=== PATIENT | male | born 1950 ===

== ENCOUNTER 2017-10-27 18:08 | Emergency (ER) | payer MEDICARE, OTHER ==
[2017-10-27 18:44] VITALS: BP 115/71; PULSE 75; RESP 18; TEMP 98.3; O2SAT 98; BMI 22.9
--- NOTE | 2017-10-27 18:53 | ED PDOC ---
Arrival/HPI - General Time Seen by Provider: 10/27/17 18:53 Historian: Patient, Spouse - History of Present Illness Narrative History of Present Illness (Text): 10/27/17 18:53 This 67 yo male presents to this ED c/o right mid back painful rash x 1 day. Past Medical History - Cardiac Hx Cardiac Disorders: Yes Hx Congestive Heart Failure: Yes - Pulmonary Hx Respiratory Disorders: No - Neurological Hx Neurological Disorder: Yes Hx Parkinson's Disease: Yes - HEENT Hx HEENT Disorder: Yes (uses eyeglasses) - Renal Hx Renal Disorder: No - Endocrine/Metabolic Hx Endocrine Disorders: No - Hematological/Oncological Hx Blood Disorders: No - Integumentary Hx Dermatological Disorder: Yes - Musculoskeletal/Rheumatological Hx Falls: Yes - Gastrointestinal Hx Gastrointestinal Disorders: Yes (CONSTIPATION) - Genitourinary/Gynecological Hx Genitourinary Disorders: Yes Hx Incontinence: Yes Hx Prostate Problems: Yes (as per patient) - Psychiatric Hx Psychophysiologic Disorder: Yes Hx Depression: Yes Hx Emotional Abuse: No Hx Physical Abuse: No Hx Substance Use: No - Surgical History Other/Comment: as per patient, he had colonoscopy(?) done in january 2016. - Anesthesia Hx Anesthesia: No Hx Anesthesia Reactions: No Hx Malignant Hyperthermia: No - Suicidal Assessment Feels Threatened In Home Enviroment: No Family/Social History Smoking Status: Never Smoked Hx Alcohol Use: No Hx Substance Use: No Allergies/Home Meds Allergies/Adverse Reactions: Allergies No Known Allergies Allergy (Verified 11/20/16 15:19) Home Medications: Home Meds Medication Instructions Recorded Confirmed Midodrine [Proamatine] 2.5 mg PO DAILY 10/27/17 10/27/17 Physical Exam Vital Signs Temp Pulse Resp BP Pulse Ox 10/27/17 18:43 98.3 F 75 18 115/71 98 Medical Decision Making ED Course and Treatment: 10/27/17 19:30 t Re-evaluation Time: 19:31 Reassessment Condition: Re-examined, Improved - Medication Orders Current Medication Orders: Discontinued Medications Valacyclovir HCl (Valtrex) 1 gm PO STAT STA PRN Reason: Protocol Stop: 10/27/17 18:55 Last Admin: 10/27/17 19:07 Dose: 1 gm Disposition/Present on Arrival - Present on Arrival Any Indicators Present on Arrival: No History of DVT/PE: No History of Uncontrolled Diabetes: No Urinary Catheter: No History Surgical Site Infection Following: None - Disposition Have Diagnosis and Disposition been Completed?: Yes Diagnosis: Herpes zoster Disposition: HOME/ ROUTINE Disposition Time: 19:31 Patient Plan: Discharge Condition: GOOD Discharge Instructions (ExitCare): Shingles (ED) Additional Instructions: Call private doctor in 1-2 days for follow up visit. Take medication as instructed with food. Return to emergency if rash worsen. Prescriptions: Ibuprofen [Motrin] 600 mg PO Q8 PRN #15 tab PRN Reason: Pain, Severe (8-10) Valacyclovir HCl [Valtrex] 1 gm PO Q8H #21 tablet Forms: [employer] (Azeri)
== END 2017-10-27 19:51 | disposition home or self-care (01) ==
LOC: ED 18:08
DX: B02.9 Zoster without complications (principal)

== ENCOUNTER 2019-03-07 11:30 | Inpatient (IN) | payer MEDICARE ==
[2019-03-07 11:40] VITALS: BMI 19.3
[2019-03-07 12:20] LABS: BASO # 0.01 K/mm3 (0.0-2.0); BASO % 0.1 % (0.0-3.0); EOS % 0.1 % (1.5-5.0); LYMPH # 0.9 (1.2-3.4); LYMPH % 10.5 % (22.0-35.0); MEAN CELL VOLUME 94.1 fl (80.0-105.0); MEAN CORPUSCULAR HEMOGLOBIN 30.6 pg (25.0-35.0); MEAN CORPUSCULAR HGB CONC 32.5 g/dl (31.0-37.0); MEAN PLATELET VOLUME 10.3 fl (7.0-11.0); MONO # 0.9 (0.1-0.6); MONO % 10.4 % (1.0-6.0); RBC 3.92 10^6/uL (3.5-6.1); RED CELL DISTRIBUTION WIDTH 13.3 % (11.5-14.5); WHITE BLOOD COUNT 8.7 10^3/uL (4.5-11.0)
[2019-03-07] MEDS ORDERED: Iohexol 300 100 ML IJ ONE (12:25)
[2019-03-07 12:31] LABS: INR 1.17; PARTIAL THROMBOPLASTIN TIME 35.1 Seconds (26.9-38.3); PROTHROMBIN TIME 13.2 SECONDS (9.4-12.5)
--- NOTE | 2019-03-07 13:02 | ED PDOC ---
Arrival/HPI - General Chief Complaint: Abdominal Pain Time Seen by Provider: 03/07/19 11:50 Historian: Family - History of Present Illness Narrative History of Present Illness (Text): 03/07/19 12:59 69 year old Kyrgyz speaking male, whose past medical history includes orthostatic hypotension, Parkinson's disease, and depression, presents to the emergency department complaining of constant lower abdominal pain that began last night. As per family, patient was constipated and had a bowel movement last night, but is now having diarrhea and noted blood in stool. Patient denies any recent travel. Patient was recently on antibiotics for bronchitis 4 weeks ago. Patient denies any fevers, chills, chest pain, shortness of breath, nausea, vomiting, diarrhea, urinary symptoms, back pain, neck pain, headache, dizziness, or any other complaint. PMD: Dr. Navas Neurologist: Dr. Sharma Sales Operations Consultant: Dr. Lam Time/Duration: Other (last night) Symptom Onset: Gradual Symptom Course: Unchanged Activities at Onset: Light Context: Home Past Medical History - Provider Review Nursing Documentation Reviewed: Yes - Infectious Disease Hx of Infectious Diseases: None - Cardiac Hx Cardiac Disorders: Yes Hx Hypotension: Yes - Pulmonary Hx Respiratory Disorders: No - Neurological Hx Neurological Disorder: Yes Hx Dementia: Yes Hx Parkinson's Disease: Yes - HEENT Hx HEENT Disorder: Yes (uses eyeglasses) - Renal Hx Renal Disorder: No - Endocrine/Metabolic Hx Endocrine Disorders: No - Hematological/Oncological Hx Blood Disorders: No - Integumentary Hx Dermatological Disorder: Yes - Musculoskeletal/Rheumatological Hx Falls: Yes - Gastrointestinal Hx Gastrointestinal Disorders: Yes (CONSTIPATION) - Genitourinary/Gynecological Hx Genitourinary Disorders: Yes Hx Incontinence: Yes Hx Prostate Problems: Yes (as per patient) - Psychiatric Hx Psychophysiologic Disorder: Yes Hx Anxiety: Yes Hx Depression: Yes Hx Emotional Abuse: No Hx Physical Abuse: No Hx Substance Use: No - Surgical History Other/Comment: as per patient, he had colonoscopy(?) done in january 2016. - Anesthesia Hx Anesthesia: Yes Hx Anesthesia Reactions: No Hx Malignant Hyperthermia: No - Suicidal Assessment Feels Threatened In Home Enviroment: No Family/Social History - Physician Review Nursing Documentation Reviewed: Yes Family/Social History: No Known Family HX Smoking Status: Never Smoked Hx Alcohol Use: No Hx Substance Use: No Allergies/Home Meds Allergies/Adverse Reactions: Allergies No Known Allergies Allergy (Verified 03/07/19 19:00) Home Medications: Home Meds Medication Instructions Recorded Confirmed Carbidopa/Levodopa [Rytary ER 3 cap PO TID 03/07/19 03/10/19 36.25 mg-145 mg Cap] Memantine HCl [Namenda Xr] 14 mg PO DAILY 03/07/19 03/10/19 Midodrine [Proamatine] 5 mg PO BID 03/07/19 03/10/19 Pimavanserin Tartrate [Nuplazid] 34 mg PO DAILY 03/07/19 03/10/19 Rivastigmine 4.6 mg/24 hr [Exelon 1 patch TOP Q24H 03/07/19 03/10/19 4.6 mg/24 hr Patch] Review of Systems - Physician Review All systems were reviewed & negative as marked: Yes - Review of Systems Constitutional: absent: Fevers, Other (chills) Respiratory: absent: SOB Cardiovascular: absent: Chest Pain Gastrointestinal: Abdominal Pain, Diarrhea, Hematochezia. absent: Nausea, Vomiting Genitourinary Male: absent: Dysuria, Frequency, Hematuria Musculoskeletal: absent: Back Pain, Neck Pain Neurological: absent: Headache, Dizziness Physical Exam Vital Signs Reviewed: Yes Vital Signs Temp Pulse Resp BP Pulse Ox 03/07/19 11:44 98.4 F 98 H 20 126/75 98 Temperature: Afebrile Blood Pressure: Normal Pulse: Regular Respiratory Rate: Normal Appearance: Positive for: Well-Appearing, Non-Toxic, Comfortable Pain Distress: None Mental Status: Positive for: other (Alert) - Systems Exam Head: Present: Atraumatic, Normocephalic Pupils: Present: PERRL Extroacular Muscles: Present: EOMI Conjunctiva: Present: Normal Mouth: Present: Moist Mucous Membranes Neck: Present: Normal Range of Motion Respiratory/Chest: Present: Decreased Breath Sounds. No: Respiratory Distress, Accessory Muscle Use Cardiovascular: Present: Normal S1, S2, Tachycardic. No: Murmurs Abdomen: Present: Tenderness (LLQ tenderness). No: Distention, Peritoneal Signs Rectal: Present: Other (Guaiac stool brown, soft. Guaiac negative. ) Back: Present: Normal Inspection Upper Extremity: Present: Normal Inspection. No: Cyanosis, Edema Lower Extremity: Present: Normal Inspection. No: Edema Neurological: Present: Other (resting tremor) Skin: Present: Warm, Dry, Normal Color. No: Rashes Psychiatric: Present: Alert Medical Decision Making ED Course and Treatment: 03/07/19 13:03 Impression: 69 year old male presents for complaints of constant left lower abdominal pain associated with diarrhea and noted hematochezia that began last night. Plan: -- CT Abd & Pelvis IV Contrast only -- EKG -- Labs -- CXR -- Urine Culture -- Morphine -- UA -- Reassess and dispo Prior Visits: Notes and results from previous visits were reviewed. Progress Notes: 03/07/19 14:03 03/07/19 14:05 EKG shows NSR at 85 BPM. As read by me. 03/07/19 14:17 Rectal exam: Guaiac stool brown, soft. Guaiac negative. [id number] EXP: 10/0303/07/19 16:[address] Navas who is aware and agrees with the plan. Accepts patient into his service [facility]action and melena. Request GI Dr. Broussard for consult. - Lab Interpretations Lab Results: PT 13.2 SECONDS (9.4-12.5) H 03/07/19 12:00 INR 1.17 03/07/19 12:00 APTT 35.1 Seconds (26.9-38.3) 03/07/19 12:00 I have reviewed the lab results: Yes - RAD Interpretation Radiology Orders: 03/07/19 12:05 CHEST PORTABLE [RAD] Stat 03/07/19 12:10 ABD & PELVIS IV CONTRAST ONLY [CT] Stat Human Resources Training Manager: Radiologist - EKG Interpretation Interpreted by ED Physician: Yes Type: 12 lead EKG - Scribe Statement The provider has reviewed the documentation as recorded by the Baldevibe Susan Madsen Provider Scribe Attestation: All medical record entries made by the Scribe were at my direction and personally dictated by me. I have reviewed the chart and agree that the record accurately reflects my personal performance of the history, physical exam, medical decision making, and the department course for this patient. I have also personally directed, reviewed, and agree with the discharge instructions and disposition. Disposition/Present on Arrival - Present on Arrival Any Indicators Present on Arrival: No History of DVT/PE: No History of Uncontrolled Diabetes: No Urinary Catheter: No History of Decub. Ulcer: No History Surgical Site Infection Following: None - Disposition Have Diagnosis and Disposition been Completed?: Yes Diagnosis: Abdominal pain, Fecal impaction Disposition: HOSPITALIZED Disposition Time: 16:00 Patient Plan: Admission Condition: STABLE
[2019-03-07] MEDS ORDERED: Morphine 2 mg/ml ISec IVP STA (13:10)
[2019-03-07 13:56] LABS: ALB/GLOB RATIO 1.2 (1.1-1.8); ALBUMIN 4.3 g/dL (3.0-4.8); ALT/SGPT 13 U/L (7-56); AMYLASE 106 U/L (35-125); AST/SGOT 37 U/L (17-59); BLOOD UREA NITROGEN 29 mg/dL (7-21); CALCIUM 9.4 mg/dL (8.4-10.5); GFR NON-AFRICAN AMERICAN > 60; LIPASE 120 U/L (23-300)
[2019-03-07 14:07] LABS: TROPONIN I < 0.01 ng/mL
--- NOTE | 2019-03-07 14:43 | CT ---
Date of service: 03/07/2019 PROCEDURE: CT Abdomen and Pelvis with contrast HISTORY: abd pain COMPARISON: Lung base and upper abdomen sections from prior chest CT with contrast 04/03/2016. TECHNIQUE: Following the intravenous administration of iodinated contrast material, a CT examination of the abdomen and pelvis was performed from the domes of the diaphragms to the symphysis pubis with reformatted datasets provided in axial, sagittal and coronal planes. Oral contrast was not administered as per referring physician request. Contrast dose: Omnipaque 300, 100 cc Radiation dose: Total exam DLP = 369.16 mGy-cm. This CT exam was performed using one or more of the following dose reduction techniques: Automated exposure control, adjustment of the mA and/or kV according to patient size, and/or use of iterative reconstruction technique. FINDINGS: LOWER THORAX: Limited bilateral basilar dependent atelectasis identified. No pleural or pericardial effusion appreciable. LIVER: Unremarkable. No gross lesion or ductal dilatation. GALLBLADDER AND BILE DUCTS: Unremarkable. PANCREAS: Unremarkable. No gross lesion or ductal dilatation. SPLEEN: Unremarkable. ADRENALS: Unremarkable. No mass. KIDNEYS AND URETERS: No obstructive uropathy bilaterally. No radiodense urolithiasis either. A sub cm lucency seen related to the cortex of the upper midpole right kidney medially, too small to characterize. There is a 2.2 cm lucency exophytic off the upper pole left kidney measuring 22 Hounsfield units potentially representing a hyperdense cyst. Follow-up ultrasonography is advised for added characterization. No definite perinephric reaction bilaterally. VASCULATURE: No aneurysmal dilatation of the abdominal aorta or iliac arterial system bilaterally. Trace aortic iliac calcified atherosclerosis identified. BOWEL: There is prominent fecal loading throughout the majority of the colon, right side greater than left with mild to moderate rectal fecal impaction evident up to 8.5 cm. No definite bowel obstruction. Stomach is collapsed and poorly evaluated. APPENDIX: No CT evidence of appendicitis. PERITONEUM: Unremarkable. No free fluid. No free air. LYMPH NODES: Unremarkable. No enlarged lymph nodes. BLADDER: Urinary bladder is largely collapsed with limited evaluation of the wall. No gross mural thickening though mild thickening is not completely excluded. REPRODUCTIVE: Unremarkable. BONES: There is prominent fecal OTHER FINDINGS: None. IMPRESSION: Prominent fecal loading is appreciate throughout the colon as well as mild to moderate rectal fecal impaction. No bowel obstruction, mesenteric edema, ascites or free intra peritoneal gas collection identified. 2.2 cm exophytic lucency off the upper pole left kidney likely reflective of hyperdense cyst. Follow-up renal ultrasound is recommended on elective basis for added characterization if not already proven benign. Limited evaluation the urinary bladder which is largely collapsed.
--- NOTE | 2019-03-07 15:48 | RAD ---
Date of service: 03/07/2019 HISTORY: abd pain COMPARISON: 02/19/2018 TECHNIQUE: 1 view obtained. FINDINGS: LUNGS: No active pulmonary disease. PLEURA: No significant pleural effusion identified, no pneumothorax apparent. CARDIOVASCULAR: No aortic atherosclerotic calcification present. Normal cardiac size. No pulmonary vascular congestion. OSSEOUS STRUCTURES: No significant abnormalities. VISUALIZED UPPER ABDOMEN: Normal. OTHER FINDINGS: None. IMPRESSION: No active disease.
[2019-03-07 16:21] LABS: URINE APPEARANCE CLEAR (CLEAR); URINE BILIRUBIN NEGATIVE (NEGATIVE); URINE BLOOD NEGATIVE (NEGATIVE); URINE COLOR LIGHT YELLOW (YELLOW); URINE GLUCOSE (UA) NEGATIVE (NEGATIVE); URINE LEUKOCYTE ESTERASE NEGATIVE Leu/uL (NEGATIVE); URINE PROTEIN NEGATIVE mg/dL (<30 mg/dL); URINE UROBILINOGEN 0.2 E.U./dL (<1 E.U./dL)
--- NOTE | 2019-03-07 18:23 | CARD ---
APPROVED REPORT Date of service: 03/07/2019 EKG Measurement Heart [id number] <Conclusion> Normal sinus rhythm Normal ECG
[2019-03-07] MEDS: LEVODOPA PO SCH (20:08)
[2019-03-07] MEDS: CARBIDOPA PO SCH (20:08)
[2019-03-07] MEDS ORDERED: Pneumococcal 23-Valent Vaccine IM ONE (22:05)
[2019-03-07 22:06] LABS: URINE BILIRUBIN NEGATIVE (NEGATIVE); URINE BLOOD NEGATIVE (NEGATIVE); URINE GLUCOSE (UA) NEGATIVE (NEGATIVE); URINE LEUKOCYTE ESTERASE NEGATIVE Leu/uL (NEGATIVE); URINE PROTEIN NEGATIVE mg/dL (<30 mg/dL); URINE UROBILINOGEN 0.2 E.U./dL (<1 E.U./dL)
[2019-03-07 22:08] LABS: URINE APPEARANCE CLEAR (CLEAR); URINE COLOR LIGHT YELLOW (YELLOW)
--- NOTE | 2019-03-08 01:16 | HP ---
DATE OF EXAM: 03/07/2019 HISTORY OF PRESENT ILLNESS: This is a 69-year-old male brought to [facility] by his with a history of diarrhea, constipation and melena. PAST MEDICAL HISTORY: The patient has a past medical history of syncope, Parkinson's, CHF. ALLERGIES: THERE ARE NO KNOWN ALLERGIES. HOME MEDICATIONS: Reported to be diltiazem one daily, 3 capsules t.i.d., Namenda XR 14 mg daily, ProAmatine 5 mg b.i.d. and Exelon patch every 24 hours. CONSULTATIONS: As per the patient's he is being followed by a physician from [facility] who has been writing their prescriptions for him. He has also been seen by the neurologist on the outside as well. SOCIAL HISTORY: He is a nonsmoker, nondrinker, non-drug user. REVIEW OF SYSTEMS: The 12 systems are reviewed, pertinent findings as stated in the physical exam. PHYSICAL EXAMINATION VITAL SIGNS: Show a temperature of 98.4. His pulse is 88, blood pressure is 126/75, his respiratory rate is 20, his oxygen sat is 98% on room air. GENERAL: The patient is alert. LUNGS: Clear. HEART: An S1, S2 rhythm. ABDOMEN: Soft. There is periumbilical tenderness. No rebound appreciated. EXTREMITIES: Show evidence of erythema. DIAGNOSTICS: His electrocardiogram is reported as showing a sinus rhythm. His abdominal pelvic CT scan shows fecal impaction and an exophytic cyst near the kidney. His chest x-ray is reported as showing no active disease. LABORATORY DATA: Shows a WBC of 8.7, RBC is 3.92, hemoglobin 12, hematocrit 36.9, and platelet count 183. His PT is 13.2 with an INR 1.14, PTT is 35.1. Chemistries show sodium 134, potassium 4.5, chloride is 99. His CO2 was 26, his anion gap is 14. His BUN is 29, his creatinine is 1.1. His liver function profile is normal. His troponin is less than 0.01. His albumin is 4.3. His amylase and lipase are normal. The urinalysis appears to be clear. IMPRESSION: A 69-year-old male with history of Parkinson's disease brought to [facility] with a history of fecal impaction, constipation, diarrhea and melena in the stool. There was a discussion over the labs and studies done by the emergency room physician as well as discussing with Celeste, the patient's . The patient will be admitted to the hospital for Gastroenterology evaluation. Nicolasa Navas MD
[2019-03-08] MEDS: PIMAVANSERIN TARTRATE PO SCH (11:34)
--- NOTE | 2019-03-08 13:12 | CP.PCM.APN ---
Subjective - Date & Time of Evaluation Date of Evaluation: 03/08/19 Time of Evaluation: 11:00 - Subjective Subjective: Pt seen and examined at bedside. Pt is confused, in no acute distress. Objective - Vital Signs/Intake and Output Vital Signs (last 24 hours): Temp Pulse Resp BP Pulse Ox 98.2 F 102 H 18 152/87 H 96 03/08/19 06:00 03/08/19 06:00 03/08/19 06:00 03/08/19 06:00 03/08/19 06:00 Intake and Output: 03/08/19 03/08/19 06:59 18:59 Output Total 800 Balance -800 - Medications Medications: Current Medications Midodrine (Proamatine) 5 mg PO BID [facility] Last Admin: 03/08/19 11:25 Dose: 5 mg Carbidopa/Levodopa [ Rytary Er 36.25 Mg- 145 Mg Cap] 3 Cap ( Home Med) 3 cap PO TID [facility] Last Admin: 03/08/19 11:35 Dose: 3 cap Memantine Hcl [ Namenda Xr] 14 Mg ( Home Med) 14 mg PO DAILY [facility] Last Admin: 03/08/19 11:35 Dose: 14 mg Pimavanserin Tartrate [Nuplazid] 1 Cap (Home Med) 1 cap PO DAILY [facility] Last Admin: 03/08/19 11:34 Dose: 1 cap Polyethylene Glycol (Miralax) 17 gm PO Q8H [facility] Stop: 03/10/19 11:31 Rivastigmine (Exelon 4.6 Mg/24 Hr Patch) 1 patch TD Q24H [facility] Last Admin: 03/07/19 20:09 Dose: Not Given - Labs Labs: 03/07/19 12:00 03/07/19 12:00 PT 13.2 SECONDS (9.4-12.5) H 03/07/19 12:00 INR 1.17 03/07/19 12:00 APTT 35.1 Seconds (26.9-38.3) 03/07/19 12:00 - Constitutional Appears: No Acute Distress - Respiratory Exam Respiratory Exam: NORMAL BREATHING PATTERN - GI/Abdominal Exam GI & Abdominal Exam: Soft - Rectal Exam Additional comments: +brown stool, no diarrhea - Exam Additional comments: +cote draining flavia urine Assessment and Plan - Assessment and Plan (Free Text) Assessment: Pt is a 69 y.o. male with pmhx of orthostatic hypotension, Parkinson's disease, and depression who presented in ED w/ c/o constant low abd pain, constipated initially and subsequently had diarrhea and noted blood in stool. He was found to have urinary retention, cote cath was inserted and Dr. Cyr was consulted. Also, neurology was consulted due to agitation. GI is on board and started him on bowel regimen. ITS Impressions Chest X-Ray 03/07/19 12:05 IMPRESSION: No active disease. Abdomen/Pelvis CT 03/07/19 12:10 IMPRESSION: Prominent fecal loading is appreciate throughout the colon as well as mild to moderate rectal fecal impaction. No bowel obstruction, mesenteric edema, ascites or free intra peritoneal gas collection identified. 2.2 cm exophytic lucency off the upper pole left kidney likely reflective of hyperdense cyst. Follow-up renal ultrasound is recommended on elective basis for added characterization if not already proven benign. Limited evaluation the urinary bladder which is largely collapsed. Plan: Ct head pending Uro, Neuro, and GI on consult Ucx pending Meds per MAR Bowel regimen Physical therapy pending Will continue to follow.
--- NOTE | 2019-03-08 13:30 | CP.PCM.CON ---
History of Present Illness - History of Present Illness History of Present Illness: S&E at bedside, chart reviewed. Request for consult is for fecal impaction. HPI: Mr. Bro is a 69 y.o male with a PMH that includes Parkinson's Disease, CHF and Syncope. He is a poor historian, and currently at time of visit no family at beside, history obtained from medical records, attending and nursing staff. Patient was brought to the ER by for c/o abdominal pain, diarrhea, melena and constipation. He had a ct scan abdomen and pelvis and found to have mild to moderate fecal impaction. Stool guiac done in the ER was negative, noted brown stool. Patient was also found to have urinary retention and cote catheter in pl evan. Patient was reported to have had an enema in the evening and had BM, no bleeding reported. Mr. Bro is a awake and alert, confused, mainly speak [place] but follow command. No acute distress, denies abdominal pain. PMH: Syncope, Parkinson's Disease,Dementia, CHF PSH: unknown Allergies: NKDA MEDS: reviewed as per MAR Social HX: nonsmoker, no h/o ETOH use, or recreational drugs Family hx:unknown ROS: reviewed as per HPI, limited Past Patient History - Infectious Disease Hx of Infectious Diseases: None - Past Social History Smoking Status: Never Smoked - CARDIAC Hx Cardiac Disorders: Yes (PALPITATIONS,ORTHOSTASTIC HYPOTENSION.) Hx Congestive Heart Failure: Yes - PULMONARY Hx Respiratory Disorders: No - NEUROLOGICAL Hx Neurological Disorder: Yes Hx Dementia: Yes Hx Parkinson's Disease: Yes - HEENT Hx HEENT Problems: Yes (uses eyeglasses) - RENAL Hx Chronic Kidney Disease: No - ENDOCRINE/METABOLIC Hx Endocrine Disorders: No - HEMATOLOGICAL/ONCOLOGICAL Hx Blood Disorders: Yes Hx Shingles: Yes (H/O) - INTEGUMENTARY Hx Dermatological Problems: Yes - MUSCULOSKELETAL/RHEUMATOLOGICAL Hx Musculoskeletal Disorders: Yes Hx Falls: Yes Hx Unsteady Gait: Yes (SHUFFLING GAIT) - GASTROINTESTINAL Hx Gastrointestinal Disorders: Yes (CONSTIPATION) - GENITOURINARY/GYNECOLOGICAL Hx Genitourinary Disorders: Yes Hx Incontinence: Yes Hx Prostate Problems: Yes (as per patient) - PSYCHIATRIC Hx Psychophysiologic Disorder: Yes Hx Anxiety: Yes Hx Depression: Yes Hx Emotional Abuse: No Hx Physical Abuse: No Hx Substance Use: No (UNKNOWN) - SURGICAL HISTORY Hx Surgeries: Yes Other/Comment: as per patient, he had colonoscopy(?) done in january 2016. - ANESTHESIA Hx Anesthesia: Yes Hx Anesthesia Reactions: No Hx Malignant Hyperthermia: No Meds Allergies/Adverse Reactions: Allergies Allergy/AdvReac Type Severity Reaction Status Date / Time No Known Allergies Allergy Verified 03/07/19 19:00 - Medications Medications: Current Medications Midodrine (Proamatine) 5 mg PO BID [facility] Last Admin: 03/07/19 20:07 Dose: 5 mg Carbidopa/Levodopa [ Rytary Er 36.25 Mg- 145 Mg Cap] 3 Cap ( Home Med) 3 cap PO TID [facility] Last Admin: 03/07/19 20:08 Dose: 3 cap Memantine Hcl [ Namenda Xr] 14 Mg ( Home Med) 14 mg PO DAILY [facility] Last Admin: 03/07/19 20:08 Dose: 14 mg Pimavanserin Tartrate [Nuplazid] 1 Cap (Home Med) 1 cap PO DAILY [facility] Polyethylene Glycol (Miralax) 17 gm PO Q8H [facility] Stop: 03/10/19 11:31 Rivastigmine (Exelon 4.6 Mg/24 Hr Patch) 1 patch TD Q24H [facility] Last Admin: 03/07/19 20:09 Dose: Not Given Physical Exam - Constitutional Appears: No Acute Distress - Head Exam Head Exam: NORMOCEPHALIC - Eye Exam Eye Exam: Normal appearance, PERRL. absent: Scleral icterus - ENT Exam ENT Exam: Mucous Membranes Moist - Neck Exam Neck exam: Positive for: Normal Inspection - Respiratory Exam Respiratory Exam: Clear to Auscultation Bilateral, NORMAL BREATHING PATTERN - Cardiovascular Exam Cardiovascular Exam: +S1, +S2 - GI/Abdominal Exam GI & Abdominal Exam: Distended, Normal Bowel Sounds, Soft. absent: Guarding, Organomegaly, Rebound, Tenderness - Rectal Exam Additional comments: moderate amount of brown soft stool noted on diaper, unable to do rectal exam stool in rectum, no melena or BRB. - Extremities Exam Extremities exam: Positive for: pedal pulses present. Negative for: calf tenderness, pedal edema - Neurological Exam Neurological exam: Alert, Oriented x3 Additional comments: confused at times Results - Vital Signs Recent Vital Signs: Last Vital Signs Temp 98.2 F 03/08/19 06:00 Pulse 102 H 03/08/19 06:00 Resp 18 03/08/19 06:00 BP 152/87 H 03/08/19 06:00 Pulse Ox 96 03/08/19 06:00 - Labs Result Diagrams: 03/07/19 12:00 03/07/19 12:00 Labs: Laboratory Results - last 24 hr 03/07/19 03/07/19 03/07/19 12:00 12:00 12:00 WBC 8.7 RBC 3.92 Hgb 12.0 L Hct 36.9 L MCV 94.1 MCH 30.6 MCHC 32.5 RDW 13.3 Plt Count 183 MPV 10.3 Neut % (Auto) 78.9 H Lymph % (Auto) 10.5 L Cottle % (Auto) 10.4 H Eos % (Auto) 0.1 L Baso % (Auto) 0.1 Lymph # (Auto) 0.9 L Cottle # (Auto) 0.9 H Eos # (Auto) 0.0 Baso # (Auto) 0.01 Absolute Neuts (auto) 6.88 H PT 13.2 H INR 1.17 APTT 35.1 Sodium 134 Potassium 4.5 Chloride 99 Carbon Dioxide 26 Anion Gap 14 BUN 29 H Creatinine 1.1 Est GFR ( Amer) > 60 Est GFR (Non-Af Amer) > 60 Random Glucose 98 Calcium 9.4 Total Bilirubin 0.7 AST 37 ALT 13 Alkaline Phosphatase 76 Lactate Dehydrogenase 487 Total Creatine Kinase 130 Troponin I < 0.01 Total Protein 7.8 Albumin 4.3 Globulin 3.5 Albumin/Globulin Ratio 1.2 Amylase 106 Lipase 120 Urine Color Urine Appearance Urine pH Ur Specific [place] Urine Protein Urine Glucose (UA) Urine Ketones Urine Blood Urine Nitrate Urine Bilirubin Urine Urobilinogen Ur Leukocyte Esterase Blood Type Blood Type Confirm Antibody Screen BBK History Checked 03/07/19 03/07/19 03/07/19 12:00 13:15 16:07 WBC RBC Hgb Hct MCV MCH MCHC RDW Plt Count MPV Neut % (Auto) Lymph % (Auto) Cottle % (Auto) Eos % (Auto) Baso % (Auto) Lymph # (Auto) Cottle # (Auto) Eos # (Auto) Baso # (Auto) Absolute Neuts (auto) PT INR APTT Sodium Potassium Chloride Carbon Dioxide Anion Gap BUN Creatinine Est GFR ( Amer) Est GFR (Non-Af Amer) Random Glucose Calcium Total Bilirubin AST ALT Alkaline Phosphatase Lactate Dehydrogenase Total Creatine Kinase Troponin I Total Protein Albumin Globulin Albumin/Globulin Ratio Amylase Lipase Urine Color Light yellow Urine Appearance Clear Urine pH 6.0 Ur Specific [place] <= 1.005 Urine Protein Negative Urine Glucose (UA) Negative Urine Ketones Negative Urine Blood Negative Urine Nitrate Negative Urine Bilirubin Negative Urine Urobilinogen 0.2 Ur Leukocyte Esterase Negative Blood Type O POSITIVE Blood Type Confirm O POSITIVE Antibody Screen Negative BBK History Checked No verified bt 03/07/19 21:30 WBC RBC Hgb Hct MCV MCH MCHC RDW Plt Count MPV Neut % (Auto) Lymph % (Auto) Cottle % (Auto) Eos % (Auto) Baso % (Auto) Lymph # (Auto) Cottle # (Auto) Eos # (Auto) Baso # (Auto) Absolute Neuts (auto) PT INR APTT Sodium Potassium Chloride Carbon Dioxide Anion Gap BUN Creatinine Est GFR ( Amer) Est GFR (Non-Af Amer) Random Glucose Calcium Total Bilirubin AST ALT Alkaline Phosphatase Lactate Dehydrogenase Total Creatine Kinase Troponin I Total Protein Albumin Globulin Albumin/Globulin Ratio Amylase Lipase Urine Color Light yellow Urine Appearance Clear Urine pH 6.0 Ur Specific [place] 1.010 Urine Protein Negative Urine Glucose (UA) Negative Urine Ketones Negative Urine Blood Negative Urine Nitrate Negative Urine Bilirubin Negative Urine Urobilinogen 0.2 Ur Leukocyte Esterase Negative Blood Type Blood Type Confirm Antibody Screen BBK History Checked Assessment & Plan - Assessment and Plan (Free Text) Assessment: Assessment: Severe constipation/Fecal impaction. Urinary retention, s/p cote Dementia Parkinson's Disease H/O CHF, syncope PLAN: diet as tolerated administer tap water enema x 1 start Miralax TID, monitor output urology following monitor hgb for overt GIB, hgb stable, no melena noted Thank you for this consult and for allowing us to participate in your patients care, further recommendation based upon clinical course. Seen and discussed w/ Dr. Broussard.
[2019-03-08] MEDS: LEVODOPA PO SCH ×3 (13:45→18:22)
[2019-03-08] MEDS: CARBIDOPA PO SCH ×3 (13:45→18:22)
--- NOTE | 2019-03-08 16:21 | CT ---
Date of service: 03/08/2019 PROCEDURE: CT HEAD WITHOUT CONTRAST. HISTORY: agitation COMPARISON: 11/20/2016. CT head. TECHNIQUE: Axial computed tomography images were obtained through the head/brain without intravenous contrast. Supplemental Coronal and Sagittal projections created and reviewed. Radiation dose: Total exam DLP = <inf_radiation_dlp> mGy-cm. This CT exam was performed using one or more of the following dose reduction techniques: Automated exposure control, adjustment of the mA and/or kV according to patient size, and/or use of iterative reconstruction technique. FINDINGS: HEMORRHAGE: No intracranial hemorrhage. BRAIN: No mass effect or edema. No atrophy or chronic microvascular ischemic changes. VENTRICLES: Unremarkable. No hydrocephalus. CALVARIUM: Unremarkable. PARANASAL SINUSES: Unremarkable as visualized. No significant inflammatory changes. MASTOID AIR CELLS: Unremarkable as visualized. No inflammatory changes. OTHER FINDINGS: None. IMPRESSION: No acute intracranial abnormalities. No significant findings to account for the clinical presentation. No significant interval change compared to the prior examination(s).
[2019-03-08] MEDS: POLYETHYLENE GLYCOL 3350 17 GM/Dose PACKET PO SCH ×2 (18:23→19:43)
--- NOTE | 2019-03-08 18:31 | PN ---
DATE: 03/08/2019 SUBJECTIVE: A 69-year-old male, resting in bed quietly this morning. He ate at the bedside, states that he was told that the patient had a quiet night. He did require a Blair catheter placement because of urinary retention and they do report that the patient did move his bowels. PHYSICAL EXAMINATION: VITAL SIGNS: The patient has a temperature of 98.2, his pulse is 88, his blood pressure is 137/90, and his oxygen saturation is 99% on room air. GENERAL: He is alert, oriented. LUNGS: Clear. HEART: S1 and S2 rhythm. ABDOMEN: Soft. There is some mild periumbilical tenderness. No rebound. EXTREMITIES: Show no evidence of edema. ASSESSMENT AND PLAN: 1. A consult has been requested with Urology because of the urinary retention and urine culture has been requested. 2. Because of his level of agitation, Neurology consult has been requested. We will need to continue the one-to-one at this time and physical therapy evaluation has been requested to need to assess the patient's safety and level of independence. We will also need to review this with the patient's who lives with the patient. We will follow up the patient's labs as well and Gastroenterology is on consult for the fecal impaction. Nicolasa Navas MD
--- NOTE | 2019-03-08 22:24 | CON ---
DATE: 03/08/2019 HISTORY OF PRESENT ILLNESS: This is a 69-year-old male with past medical history of Parkinson's disease and depression. The patient was becoming agitated and also constipated and the patient was confused. I was called to evaluate the patient. PAST MEDICAL HISTORY: Parkinson's disease and the patient is on Carbidopa and Levodopa, memantine for memory loss, midodrine for partial hypotension and also on Exelon patch for sleeping. PHYSICAL EXAMINATION VITAL SIGNS: Blood pressure 126/75. HEENT: Normocephalic and atraumatic. NECK: Supple. NEUROLOGIC: Awake, confused. Following simple commands. Does not know whereabouts, thinks he is at home. Spontaneous movement of the extremities noted. Masked facies. Rigidity of both wrists and legs. Cerebellar; gait deferred. IMPRESSION: Altered mental status, history of Parkinson's and agitation. We will do the CAT scan of the head without contrast. Continue present management. The patient was given Seroquel and he is on one-to-one. Workup in progress. We will followup. Thank you. Darren Sánchez MD
[2019-03-09] MEDS: POLYETHYLENE GLYCOL 3350 17 GM/Dose PACKET PO SCH ×3 (04:11→20:00)
[2019-03-09 07:08] LABS: BASO # 0.01 K/mm3 (0.0-2.0); BASO % 0.1 % (0.0-3.0); EOS % 0.3 % (1.5-5.0); HEMOGLOBIN 13.4 g/dL (14.0-18.0); LYMPH # 1.3 (1.2-3.4); LYMPH % 12.9 % (22.0-35.0); MEAN CELL VOLUME 93.5 fl (80.0-105.0); MEAN CORPUSCULAR HEMOGLOBIN 31.1 pg (25.0-35.0); MEAN CORPUSCULAR HGB CONC 33.3 g/dl (31.0-37.0); MEAN PLATELET VOLUME 10.7 fl (7.0-11.0); MONO % 9.8 % (1.0-6.0); RBC 4.31 10^6/uL (3.5-6.1); RED CELL DISTRIBUTION WIDTH 13.1 % (11.5-14.5); WHITE BLOOD COUNT 10.3 10^3/uL (4.5-11.0)
[2019-03-09 07:34] LABS: ALB/GLOB RATIO 1.1 (1.1-1.8); ALBUMIN 4.2 g/dL (3.0-4.8); ALT/SGPT 12 U/L (7-56); AST/SGOT 42 U/L (17-59); BLOOD UREA NITROGEN 16 mg/dL (7-21); CALCIUM 9.6 mg/dL (8.4-10.5); GFR NON-AFRICAN AMERICAN > 60
[2019-03-09] MEDS: PIMAVANSERIN TARTRATE PO SCH ×2 (10:41→10:46)
[2019-03-09] MEDS: CARBIDOPA PO SCH ×3 (10:41→18:00)
[2019-03-09] MEDS: LEVODOPA PO SCH ×3 (10:41→18:00)
--- NOTE | 2019-03-09 11:59 | PN ---
DATE: 03/09/2019 SUBJECTIVE: A 69-year-old male resting quietly in bed this morning. Nursing staff states that he had a relatively quiet night. His is at the bedside. PHYSICAL EXAMINATION: VITAL SIGNS: Temperature of 98.2, pulse is 84, blood pressure is 159/80, oxygen sat is 96% on room air, respiratory rate is 18. GENERAL: He alert and oriented. LUNGS: Clear. HEART: Is in S1, S2 rhythm. ABDOMEN: Soft with positive bowel sounds. EXTREMITIES: Show no evidence of edema. LABORATORY DATA: WBC of 10.3, RBC 4.31, hemoglobin 13.2, hematocrit 40.3, platelet count is 205. Chemistry shows sodium 135, potassium 4.2, chloride 97, CO2 of 31, BUN 16, creatinine is 0.9. His LFTs are normal. The patient's urinalysis was clear. A urine culture has been showing no growth. He had a Blair catheter in place because of urinary retention. He has fecal impaction. He has Parkinson's disease. Urology consult has been requested and is pending and we will get an ultrasound of his kidneys to rule out any cystic disease. Neurology has recommended that the patient continue his and Exelon, Namenda and Nuplazid as well as ProAmatine. Physical Therapy is going to work with the patient. We need to keep the patient on a one-to-one because of periods of confusion and agitation related to his Parkinson's disease. Continue current level of care at this time. Nicolasa Navas MD
[2019-03-09 12:13] LABS: BASO # 0.01 K/mm3 (0.0-2.0); BASO % 0.1 % (0.0-3.0); EOS % 0.2 % (1.5-5.0); HEMOGLOBIN 14.3 g/dL (14.0-18.0); LYMPH % 21.7 % (22.0-35.0); MEAN CELL VOLUME 94.5 fl (80.0-105.0); MEAN CORPUSCULAR HEMOGLOBIN 31.3 pg (25.0-35.0); MEAN CORPUSCULAR HGB CONC 33.1 g/dl (31.0-37.0); MEAN PLATELET VOLUME 10.4 fl (7.0-11.0); MONO # 0.8 (0.1-0.6); MONO % 8.3 % (1.0-6.0); RBC 4.57 10^6/uL (3.5-6.1); RED CELL DISTRIBUTION WIDTH 13.1 % (11.5-14.5); WHITE BLOOD COUNT 9.2 10^3/uL (4.5-11.0)
[2019-03-09 12:19] LABS: ALB/GLOB RATIO 1.1 (1.1-1.8); ALBUMIN 4.5 g/dL (3.0-4.8); ALT/SGPT 23 U/L (7-56); AST/SGOT 42 U/L (17-59); BLOOD UREA NITROGEN 18 mg/dL (7-21); CALCIUM 9.9 mg/dL (8.4-10.5); GFR NON-AFRICAN AMERICAN > 60
--- NOTE | 2019-03-09 12:20 | PCM.RRT ---
BUSINESS ANALYTICS SPECIALIST Nurse Assessment - Situation Date: 03/09/19 Time BUSINESS ANALYTICS SPECIALIST was called: 11:45 BUSINESS ANALYTICS SPECIALIST Location:: [address] [place] [address] Room Number: [id number] BUSINESS ANALYTICS SPECIALIST Reason for Call: Change in Mental Status BUSINESS ANALYTICS SPECIALIST Called By: Other Disciplines - IV IV Inserted during BUSINESS ANALYTICS SPECIALIST?: No - Respiratory Oxygen Delivery Method: Room Air Received Nebulizer Treatments:: No - Medication Medications Administered During BUSINESS ANALYTICS SPECIALIST: No meds administered - Diagnostic Test Ordered EKG: Yes Chest X-Ray: No CT Scan: No - Stat Labs Ordered BUSINESS ANALYTICS SPECIALIST Stat Labs Ordered: CBC, BMP CPR started during BUSINESS ANALYTICS SPECIALIST?: No - Vital Signs Vital Sign: BP: 168/80 O2 sat: 97% on room air RR: 16 MO: 88 - Finger Stick Blood Glucose Finger Stick Blood Glucose: 120 - [place] Coma Scale Coma Scale Eye Opening: Spontaneous Coma Scale Motor: Obeys Commands Movement Coma Scale Verbal: Oriented - Time BUSINESS ANALYTICS SPECIALIST Ended Time BUSINESS ANALYTICS SPECIALIST Ended: 11:56 - Vital Signs at end of BUSINESS ANALYTICS SPECIALIST Vital Signs at end of BUSINESS ANALYTICS SPECIALIST: BP: 154/80 MO: 86 O2 Sat: 98 RR: 16 - Recommendations 5) BUSINESS ANALYTICS SPECIALIST Level of Care Recommendations: Transfer to Telemetry Notifications: Attending Physician, Consultations I.Reason for BUSINESS ANALYTICS SPECIALIST - A) Acute Change in Patient: (Select all that apply): Acute change in mental status - Neurological Status (Select all that apply): Alert, Responsive, Oriented, Follows Commands - Respiratory Oxygen Delivery Method: Room Air - Constitutional Appears: Non-toxic, No Acute Distress - Head Head Exam: ATRAUMATIC, NORMAL INSPECTION - Eyes Eye Exam: EOMI, Normal appearance, PERRL - Respiratory Exam Respiratory Exam: Clear to Ausculation Bilateral, NORMAL BREATHING PATTERN. absent: Rales, Rhonchi, Wheezes - Cardiovascular Exam Cardiovascular Exam: REGULAR RHYTHM, +S1, +S2. absent: Tachycardia, JVD - GI/Abdominal Exam GI & Abdominal Exam: Soft, Tenderness, Normal Bowel Sounds - Neurological Exam Neurological Exam: Alert, Awake, Oriented x3 - Extremities Exam Extremities Exam: Full ROM, Normal Capillary Refill, Normal Inspection Plan - Assessment of Findings&Treatment Plan Clinical partner was helping patient in bathroom having a bowel move when the patient while sitting on toilet lost consciousness while straining, clinical partner alerted nurse and within moments patient was moved to bed by clinical partner and nurse. An BUSINESS ANALYTICS SPECIALIST was called at approx 11:45am by RN. Per clinical partner the stool was non-bloody. Per witnesses he did not hit his head. Residents and hospitalists arrived on the scene. Vitals were checked which were normal with exception of BP being 168/80. Blood glucose was 120. EKG was perf ormed which was normal sinus rhythm. CBC and CMP was ordered and did show any alarming abnormalities (hgb was normal). A CT head performed yesterday was reviewed which did not show any acute findings. Patient was AAOx3 and not in any pain or discomfort. Attending Nicolasa Navas was contacted who requested transfer to telemetry (this was ordered). Neurologist Dr Darren Sánchez was contacted and made aware of this episode - he did not endorse any new orders. A/P: Syncope -likely 2/2 vasovagal episode while having bowel movement -ekg/cbc/cmp ordered -transfer to telemetry to ensure no occult cardiac arrythmia to explain syncopal episode -Discussed BUSINESS ANALYTICS SPECIALIST with primary attending Dr Nicolasa Navas -Discussed BUSINESS ANALYTICS SPECIALIST with neurologist Dr Darren Sánchez
--- NOTE | 2019-03-09 17:14 | CARD ---
APPROVED REPORT Date of service: 03/09/2019 EKG Measurement Heart [id number] <Conclusion> Normal sinus rhythm Normal ECG
--- NOTE | 2019-03-09 23:13 | CP.PCM.PN ---
Subjective - Subjective Subjective: p Objective - Vital Signs/Intake and Output Vital Signs (last 24 hours): Temp Pulse Resp BP Pulse Ox 98.2 F 77 18 159/94 H 96 03/09/19 06:00 03/09/19 18:00 03/09/19 06:00 03/09/19 06:00 03/09/19 06:00 Intake and Output: 03/09/19 03/10/19 18:59 06:59 Intake Total 120 Output Total 1300 Balance -1180 - Medications Medications: Current Medications Midodrine (Proamatine) 5 mg PO BID [facility] Last Admin: 03/09/19 17:53 Dose: 5 mg Carbidopa/Levodopa [ Rytary Er 36.25 Mg- 145 Mg Cap] 3 Cap ( Home Med) 3 cap PO TID [facility] Last Admin: 03/09/19 18:00 Dose: Not Given Memantine Hcl [ Namenda Xr] 14 Mg ( Home Med) 14 mg PO DAILY [facility] Last Admin: 03/09/19 10:40 Dose: 14 mg Pimavanserin Tartrate [Nuplazid] 1 Cap (Home Med) 1 cap PO DAILY [facility] Last Admin: 03/09/19 10:46 Dose: 1 cap Polyethylene Glycol (Miralax) 17 gm PO Q8H [facility] Stop: 03/10/19 11:31 Last Admin: 03/09/19 20:00 Dose: Not Given Rivastigmine (Exelon 4.6 Mg/24 Hr Patch) 1 patch TD Q24H [facility] Last Admin: 03/09/19 18:49 Dose: 1 patch - Labs Labs: 03/09/19 12:00 03/09/19 12:00 PT 13.2 SECONDS (9.4-12.5) H 03/07/19 12:00 INR 1.17 03/07/19 12:00 APTT 35.1 Seconds (26.9-38.3) 03/07/19 12:00 Assessment and Plan - Assessment and Plan (Free Text) Assessment: p Plan: p
--- NOTE | 2019-03-10 09:44 | US ---
Date of service: 03/09/2019 PROCEDURE: Ultrasound of the Kidneys HISTORY: r/o renal cyst COMPARISON: None available. TECHNIQUE: Sonogram of the kidneys. FINDINGS: RIGHT KIDNEY: Measures: 11.31 x 4.22 x 5.12 cm. Normal in size, contour and echogenicity. No stone, solid mass lesion or hydronephrosis visualized. LEFT KIDNEY: Measures: 9.48 x 4.38 x 5.12 cm. Normal in size, contour and echogenicity. No stone, solid mass lesion or hydronephrosis visualized. The small cysts seen in the upper pole of the left kidney on CT is not visualized on ultrasound OTHER FINDINGS: The report concurs with the preliminary [facility] report IMPRESSION: Unremarkable renal sonogram.
[2019-03-10] MEDS: POLYETHYLENE GLYCOL 3350 17 GM/Dose PACKET PO SCH ×3 (10:20→16:29)
--- NOTE | 2019-03-10 10:45 | CP.PCM.PCO ---
Physician Communication Note - Physician Communication Note Physician Communication Note: pt emily delirium in PD. c/w Nuplazid for agitation. PT eval. C/w Rytary.
--- NOTE | 2019-03-10 12:36 | CON ---
DATE: 03/10/2019 CONSULTATION REQUESTING PHYSICIAN: Dr. Nicolasa Navas. REASON FOR CONSULTATION: Syncope. HISTORY OF PRESENT ILLNESS: This is a 69-year-old man with a history of Parkinson's disease and depression, who was admitted on 03/07 with complaints of lower abdominal discomfort. He was found to be constipated. Yesterday, while straining in the bathroom, he became lightheaded and apparently lost consciousness. When evaluated, he was hypertensive. He was transferred to telemetry. No significant dysrhythmias have been recorded. Electrocardiogram showed no acute changes. He is seen lying in bed on telemetry at this time. He is sedated and received some Ativan earlier this morning; he is not arousable, but comfortable. PAST MEDICAL HISTORY: Rest of the history is obtained from his bedside nurse as well as the hospital chart. He reportedly has a history of orthostatic hypotension as well. He has recently been treated for bronchitis. There is no clear history of a prior syncope. CURRENT MEDICATIONS: His current medications include Carbidopa, Levodopa, Exelon patch, Namenda, MiraLax, Nuplazid, and Midodrine. ALLERGIES: NONE. SOCIAL HISTORY: He does not smoke or drink. FAMILY HISTORY: Unobtainable. REVIEW OF SYSTEMS: Unobtainable at the present time, but upon review of the chart, 12-point review of systems was performed earlier and his main complaint was abdominal discomfort and intermittent dizziness. PHYSICAL EXAMINATION: GENERAL: He is a middle-aged man, who appears comfortable, but sedated. VITAL SIGNS: His blood pressure 150/76, with a pulse of 80, in sinus; respirations of 14. He is afebrile. HEENT: Mild temporal wasting noted. NECK: No JVD noted. CHEST: Few scattered rhonchi heard. HEART: PMI in normal position with a soft systolic murmur at the lower left sternal border. ABDOMEN: Soft, bowel sounds are present. EXTREMITIES: No clubbing, cyanosis, or edema. SKIN: Warm and dry. PSYCHIATRIC: Unable to fully assess. NEUROLOGIC: Moving all four extremities, but otherwise unable to assess due to the level of sedation. DIAGNOSTIC DATA: White count is 9.2, hemoglobin and hematocrit 14.3 and 43.2, with a platelet count of 206,000, potassium 4.4, BUN and creatinine 18 and 1. Electrocardiogram revealed sinus rhythm with no significant abnormalities. Recent chest x-ray revealed normal cardiac silhouette with clear lung david. IMPRESSION: 1. Recent syncope, likely vasovagal in nature, has occurred while straining on the toilet. 2. History of Parkinson's disease. 3. History of dementia. 4. Orthostatic hypotension which likely was a contributing factor to his recent syncopal event. RECOMMENDATIONS: If not recently performed, an echocardiogram will be reviewed. desk sergeant with 24 hours would be reasonable; if no significant dysrhythmias are found, this can be discontinued. In general, conservative care appears most appropriate at this time. Thank you for this consultation. We will be happy to follow along as needed. Thiago Cruz MD MTDD
[2019-03-10 12:48] VITALS: RESP 18
--- NOTE | 2019-03-10 13:00 | CP.PCM.PCO ---
Additional Comments - Additional Comments Additional Comments: Raheem BORDEN, pt ok to dc home w/ Linzess. D/W Dr. Cyr, pt to go home with cote and Flomax. D/W Dr. Cruz, ok to dc home from cardiac standpoint.
[2019-03-10] MEDS: CARBIDOPA PO SCH (16:29)
[2019-03-10] MEDS: LEVODOPA PO SCH (16:29)
[2019-03-10] MEDS: PIMAVANSERIN TARTRATE PO SCH (16:30)
--- NOTE | 2019-03-10 16:38 | PN ---
DATE: 03/10/2019 NEUROLOGY FOLLOWUP CHIEF COMPLAINT: The patient was seen up in bed. No acute distress. He is back at his baseline. He is less disoriented today. He did have a mild vasovagal event after passing his bowels last night. Currently, he is doing much better. He is on Nuplazid for agitation related to Parkinson disease. He is on Rytary for his Parkinson's. He will go home with the Blair and follow up with an Urologist as outpatient. He is currently stable. PAST MEDICAL HISTORY: History of constipation, Parkinson disease, and parkinson-induced cognitive impairment. HOME MEDICATIONS: Reviewed by nurses' reconciliation sheet. ALLERGIES: NO KNOWN DRUG ALLERGIES. SOCIAL HISTORY: No illicit drug abuse, smoking, or EtOH abuse. REVIEW OF SYSTEMS: A 14-point review of systems is negative except as per the HPI. FAMILY HISTORY: Noncontributory. PHYSICAL EXAMINATION: VITAL SIGNS: Blood pressure 150/76, respiratory rate of 14 and pulse rate of 80. HEENT: Head is atraumatic and normocephalic. PERRLA. Extraocular muscles intact. NECK: Supple. No JVD. No adenopathy noted. LUNGS: Clear to auscultation. No adventitious sounds. HEART: S1 and S2. Normal rate and rhythm. No murmurs, rubs or gallops. ABDOMEN: Soft and nontender. Nondistended. Bowel sounds present. EXTREMITIES: No clubbing. No cyanosis. Peripheral pulses are 2+, felt bilaterally. NEURO: The patient is alert and oriented to person and place, but not much to month or year. Recall after 5 minutes is 0/3. Poor attention span, slow thought process. Mask-like facies. Speech is hypophonic, but no aphasia noted. Cranial nerves II through XII are intact. Motor exams, Increased tone throughout with cogwheeling rigidity at both wrists, moves all extremities equally. No pronator drift seen. Sensory exam: Decreased light touch and pinprick up to the calves bilaterally. Decreased vibration at the toes. DTRs are 2+ throughout and 1 at both knees and ankles. Coordination: [id number] intact. No dysmetria noted. Gait is deferred for now. 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 At this time, he is clinically stable. We will continue with home medications of Rytary and Nuplazid for underlying parkinsonism and Parkinson-induced agitation and recommend Metamucil b.i.d. and orange juice to help him with constipation and follow up with his urologist for his underlying Blair. The patient is clinically stable from my standpoint. Britton Sánchez MD
[2019-03-10 18:45] VITALS: BP 121/73; PULSE 85; TEMP 98.4; O2SAT 94
--- NOTE | 2019-03-10 21:26 | CP.PCM.PN ---
Subjective - Date & Time of Evaluation Date of Evaluation: 03/10/19 Time of Evaluation: 09:00 - Subjective Subjective: Patient was seen and evaluated here earlier patient's was at bedside. Patient is sedated sleepy Objective - Vital Signs/Intake and Output Vital Signs (last 24 hours): Temp Pulse Resp BP Pulse Ox 98.4 F 85 18 121/73 94 L 03/10/19 18:00 03/10/19 18:00 03/10/19 18:00 03/10/19 18:00 03/10/19 18:00 - Medications Medications: Current Medications Midodrine (Proamatine) 5 mg PO BID [facility] Last Admin: 03/10/19 16:47 Dose: 5 mg Carbidopa/Levodopa [ Rytary Er 36.25 Mg- 145 Mg Cap] 3 Cap ( Home Med) 3 cap PO TID [facility] Last Admin: 03/10/19 16:29 Dose: Not Given Memantine Hcl [ Namenda Xr] 14 Mg ( Home Med) 14 mg PO DAILY [facility] Last Admin: 03/10/19 16:28 Dose: Not Given Pimavanserin Tartrate [Nuplazid] 1 Cap (Home Med) 1 cap PO DAILY [facility] Last Admin: 03/10/19 16:30 Dose: Not Given Rivastigmine (Exelon 4.6 Mg/24 Hr Patch) 1 patch TD Q24H [facility] Last Admin: 03/10/19 16:48 Dose: 1 patch Tamsulosin HCl (Flomax) 0.4 mg PO DAILY [facility] Last Admin: 03/10/19 16:47 Dose: 0.4 mg Thiamine HCl (Vitamin B1 Tab) 100 mg PO DAILY [facility] Last Admin: 03/10/19 16:48 Dose: 100 mg - Labs Labs: 03/09/19 12:00 03/09/19 12:00 PT 13.2 SECONDS (9.4-12.5) H 03/07/19 12:00 INR 1.17 03/07/19 12:00 APTT 35.1 Seconds (26.9-38.3) 03/07/19 12:00 - Constitutional Appears: Non-toxic, No Acute Distress, Agitated - Head Exam Head Exam: ATRAUMATIC, NORMOCEPHALIC - Eye Exam Eye Exam: absent: Conjunctival injection, Scleral icterus - ENT Exam ENT Exam: Mucous Membranes Moist, Normal Oropharynx - Neck Exam Neck Exam: Full ROM. absent: Lymphadenopathy - Respiratory Exam Respiratory Exam: Clear to Ausculation Bilateral, NORMAL BREATHING PATTERN. absent: Respiratory Distress - Cardiovascular Exam Cardiovascular Exam: +S1, +S2. absent: JVD - GI/Abdominal Exam GI & Abdominal Exam: Soft. absent: Tenderness, Mass - Extremities Exam Extremities Exam: Normal Inspection. absent: Pedal Edema - Neurological Exam Neurological Exam: Alert, Awake, Oriented x3 Assessment and Plan - Assessment and Plan (Free Text) Assessment: Chronic constipation history of Parkinson's disease patient has been glimpses at home. Patient had a syncopal episode yesterday. Trying to move his bowels. Anxious agitated before. Discussed with the patient's advised to restart the Linzess and use it also in addition MiraLAX as needed to keep the bowel movements available. Recently patient did resume any months for bowel clearance. History of Parkinson's disease patient did have a colonoscopy 2 years ago which was also reviewed I did discuss with the Dr. Navas earlier today
--- NOTE | 2019-03-11 22:51 | CP.PCM.PN ---
Subjective - Date & Time of Evaluation Date of Evaluation: 03/10/19 Time of Evaluation: 05:00 - Subjective Subjective: Patient was picked at bedside. Because medical transcriptionist had asked me to co-sign order Ativan 1 IM x 1 on 03/10 and Ativan 1 mg IV x 2 on 03/09. Patient had no complaints. Medical record was reviewed. This 69 year old male was admitted with diarrhoea,constipation and melena,fecal impaction. Has PMH of syncope , Parkinson's CHF. Objective - Vital Signs/Intake and Output Vital Signs (last 24 hours): Temp Pulse Resp BP Pulse Ox 98.4 F 85 18 121/73 94 L 03/10/19 18:00 03/10/19 18:00 03/10/19 18:00 03/10/19 18:00 03/10/19 18:00 - Labs Labs: 03/09/19 12:00 03/09/19 12:00 PT 13.2 SECONDS (9.4-12.5) H 03/07/19 12:00 INR 1.17 03/07/19 12:00 APTT 35.1 Seconds (26.9-38.3) 03/07/19 12:00 - Constitutional Appears: Well, No Acute Distress - Head Exam Head Exam: ATRAUMATIC, NORMAL INSPECTION, NORMOCEPHALIC - Eye Exam Eye Exam: Normal appearance - ENT Exam ENT Exam: Normal External Ear Exam - Neck Exam Neck Exam: Normal Inspection - Respiratory Exam Respiratory Exam: NORMAL BREATHING PATTERN - Cardiovascular Exam Cardiovascular Exam: absent: JVD - GI/Abdominal Exam GI & Abdominal Exam: absent: Distended - Rectal Exam Rectal Exam: Deferred - Exam Additional comments: Deferred. - Extremities Exam Extremities Exam: Normal Inspection - Back Exam Back Exam: NORMAL INSPECTION - Neurological Exam Neurological Exam: Alert - Psychiatric Exam Psychiatric exam: Agitated - Skin Skin Exam: Normal Color Assessment and Plan - Assessment and Plan (Free Text) Assessment: Agitation. Fecal impaction. CHF. Parkinson's disease. Plan: Ativan 1 mg X 1. Ativan 1 mg IV x 2 was given day earlier. Continue present management.
== END 2019-03-10 19:45 | disposition home or self-care (01) | DRG 389 ==
LOC: ED 11:30 → ERH 16:06 → 5RNO 17:41 → 2RNO 03-09 14:18
PROVIDERS: ADMIT Internal Medicine; ATTEND Internal Medicine
PROC: 0T9B70Z Drainage of Bladder with Drainage Device, Via Natural or Artificial Opening (ICD-10-PCS; principal; 2019-03-08)
DX: K56.41 Fecal impaction (principal); K92.1 Melena; G20 Parkinson's disease; F02.80 Dementia in other diseases classified elsewhere, unspecified severity, without behavioral disturbance, psychotic disturbance, mood disturbance, and anxiety; R33.9 Retention of urine, unspecified; R19.7 Diarrhea, unspecified; I50.9 Heart failure, unspecified; I95.1 Orthostatic hypotension